=== PATIENT | male | born 1970 | race Caucasian/White ===

== ENCOUNTER 2017-01-20 10:33 | Day surgery (SDC) | payer BC ==
[~2017-01-20 10:33] MED LIST: Acetaminophen/HYDROcodone 325-5 MG Tab PO PRN
[2017-01-20] MEDS ORDERED: Bupivacaine 0.25%/EPINEPHrine 1:200,000 10 ML SDV ONE ×2 (10:39→12:42)
[2017-01-20] MEDS ORDERED: Propofol 200 MG/20 ML SDV ONE ×2 (10:58→13:03)
[2017-01-20] MEDS ORDERED: fentaNYL 100 MCG/2 ML SDV ONE (10:58)
[2017-01-20] MEDS ORDERED: Midazolam 1 MG/ML 2 ML SDV ONE (10:58)
[2017-01-20] MEDS ORDERED: fentaNYL 250 MCG/5 ML SDV ONE (10:58)
[2017-01-20] MEDS ORDERED: Lidocaine 2% 5 ML SDV ONE (10:58)
[2017-01-20] MEDS ORDERED: Clindamycin Phosphate in D5W 600 MG in Premix Bag 1 BAG IV ONE ×2 (11:00)
[2017-01-20] MEDS ORDERED: Bacitracin Oint 28.35 GM Tube TOP ONE (11:00)
[2017-01-20] MEDS ORDERED: Rocuronium 10 MG/ML 10 ML Syringe ONE (11:00)
[2017-01-20] MEDS ORDERED: Ondansetron 4 MG/2 ML SDV ONE (11:00)
[2017-01-20] MEDS ORDERED: Neostigmine Methylsulfate 1 MG/ML 5 ML Syringe ONE (11:00)
[2017-01-20] MEDS ORDERED: Bupivacaine 0.25%/EPINEPHrine 1:200,000 10 ML SDV INJECT ONE (11:00)
[2017-01-20] MEDS ORDERED: HYDROmorphone 2 MG/ML Syringe ONE (11:07)
[2017-01-20] MEDS ORDERED: Methylene Blue 50 MG/10 ML Ampule IV ONE (11:19)
--- NOTE | 2017-01-20 11:19 | PCM.PREANE ---
Preanesthetic Assessment - Anesthesia/Transfusion/Family Hx Anesthesia History: Prior Anesthesia Without Reaction Family History of Anesthesia Reaction: No Transfusion History: No Prior Transfusion(s) - Review of Systems General: No Symptoms Pulmonary: No Symptoms Cardiovascular: No Symptoms Gastrointestinal: No symptoms Neurological: No Symptoms Other: Reports: None - Physical Assessment NPO Status Date: 01/19/17 O2 Sat by Pulse Oximetry: 97 Respiratory Rate: 16 Vital Signs: Last Vital Signs Temp 37.2 C 01/20/17 10:58 Pulse 64 01/20/17 10:58 Resp 16 01/20/17 10:58 BP 158/77 H 01/20/17 10:58 Pulse Ox 97 01/20/17 10:58 Height: 1.78 m Weight: 127.006 kg ASA Class: 2 Mental Status: Alert & Oriented x3 Airway Class: Mallampati = 2 Dentition: Reports: Normal Dentition ROM/Head Extension: Full Lungs: Clear to auscultation, Normal respiratory effort Cardiovascular: Regular Rate, Regular Rhythm - Allergies Allergies/Adverse Reactions: Allergies Allergy/AdvReac Type Severity Reaction Status Date / Time No Known Allergies Allergy Verified 02/10/16 20:02 - Blood Blood Available: Yes - Anesthesia Plan Pre-Op Medication Ordered: None - Acknowledgements Anesthesia Type Planned: General Anesthesia Pt an Appropriate Candidate for the Planned Anesthesia: Yes Alternatives and Risks of Anesthesia Discussed w Pt/Guardian: Yes Pt/Guardian Understands and Agrees with Anesthesia Plan: Yes Additional Comments: problem list: chronic bilat lower ext edema with stasis changes, has scabbed excoriations, but no cellulitis. PreAnesthesia Questionnaire - Past Health History Medical/Surgical History: Denies Medical/Surgical History Gastrointestinal History: Reports: None Endocrine/Metabolic History: Reports: Obesity/BMI 30+ - Past Surgical History Head Surgeries/Procedures: Reports: None GI Surgical History: Reports: Other (See Below) Other GI Surgeries/Procedures: previous exc of pilonidal cyst x2 Musculoskeletal Surgical History: Reports: Other (See Below) Other Musculoskeletal Surgeries/Procedures:: amputation of tip of finger - SUBSTANCE USE Smoking Status *Q: Current Some Day Smoker Tobacco Use Within Last Twelve Months: Snuff/Dip Recreational Drug Use History: No - HOME MEDS Home Medications: Home Meds Furosemide 20 mg PO DAILY 01/18/17 [History] Levofloxacin 1 tab PO DAILY 01/18/17 [History] - CURRENT (IN HOUSE) MEDS Current Meds: Current Medications Hydrocodone Bitart/Acetaminophen ([place] 325-5 Mg) 1 tab PO Q4H PRN PRN Reason: Pain Clindamycin Phosphate 600 mg/ (Premix) 50 mls @ 150 mls/hr IV ONETIME ONE Stop: 01/20/17 11:19 Lactated Ringer's (Ringers, Lactated) 1,000 mls @ 125 mls/hr IV ASDIRECTED KENNY Last Admin: 01/20/17 10:59 Dose: 125 mls/hr Discontinued Medications Bacitracin (Bacitracin Oint) 50 gm TOP ONETIME ONE Stop: 01/20/17 11:01 Bupivacaine HCl/Epinephrine Bitart (Marcaine 0.25%/Epinephrine 1:200,000) 30 ml INJECT ONETIME ONE Stop: 01/20/17 11:01 Bupivacaine HCl/Epinephrine Bitart (Marcaine 0.25%/Epinephrine 1:200,000) Confirm Administered Dose 10 ml .ROUTE .STK-MED ONE Stop: 01/20/17 10:40 Fentanyl (Sublimaze) Confirm Administered Dose 100 mcg .ROUTE .STK-MED ONE Stop: 01/20/17 10:59 Fentanyl (Sublimaze) Confirm Administered Dose 250 mcg .ROUTE .STK-MED ONE Stop: 01/20/17 10:59 Glycopyrrolate () Confirm Administered Dose 1 mg .ROUTE .STK-MED ONE Stop: 01/20/17 11:01 Hydromorphone HCl (Dilaudid) Confirm Administered Dose 2 mg .ROUTE .STK-MED ONE Stop: 01/20/17 11:08 Lidocaine (Xylocaine-Mpf 2%) Confirm Administered Dose 10 ml .ROUTE .STK-MED ONE Stop: 01/20/17 10:59 Midazolam HCl (Versed 1 Mg/Ml) Confirm Administered Dose 2 mg .ROUTE .STK-MED ONE Stop: 01/20/17 10:59 Neostigmine Methylsulfate (Neostigmine) Confirm Administered Dose 5 mg .ROUTE .STK-MED ONE Stop: 01/20/17 11:01 Ondansetron HCl (Zofran) Confirm Administered Dose 4 mg .ROUTE .STK-MED ONE Stop: 01/20/17 11:01 Propofol (Diprivan 20 Ml) Confirm Administered Dose 400 mg .ROUTE .STK-MED ONE Stop: 01/20/17 10:59 Rocuronium Lampe (Zemuron) Confirm Administered Dose 100 mg .ROUTE .MiniTime-MED ONE Stop: 01/20/17 11:01
[2017-01-20] MEDS ORDERED: Lactated Ringers 1,000 ML IV SCH (12:00)
[2017-01-20] MEDS ORDERED: fentaNYL 100 MCG/2 ML SDV IVPUSH PRN (12:52)
[2017-01-20] MEDS ORDERED: HYDROmorphone 2 MG/ML Syringe IVPUSH ONE (12:52)
--- NOTE | 2017-01-20 14:03 | PCM.OPNOTE ---
- General Post-Op/Procedure Note Date of Surgery/Procedure: 01/20/17 Operative Procedure(s): excision of large recurrent pilonidal cyst with complex closure of 20cm Pre Op Diagnosis: pilonidal cyst with abscess - recurrent x 2 Post-Op Diagnosis: Same Anesthesia Technique: General ET tube, Local Primary Surgeon: Charley Prater [employer] Certified Internetwork Expert: Eleni Garner Complications: None Condition: Good
--- NOTE | 2017-01-20 14:32 | PCM.POSTAN ---
POST ANESTHESIA ASSESSMENT - MENTAL STATUS Mental Status: alert, oriented - RESPIRATORY Respiratory Status: respiratory rate WNL, airway patent, O2 saturation stable - GASTROINTESTINAL GI Status: no symptoms - PAIN Pain Score: 0 - POST OP HYDRATION Hydration Status: adequate & stable - OBSERVATIONS Free Text/Narrative:: no anesthesia problems
[2017-01-20 16:56] VITALS: BP 133/52
--- NOTE | 2017-01-25 17:26 | OR ---
SURGEON: FAYE LEIGH MD DATE OF PROCEDURE: 01/20/2017 PREOPERATIVE DIAGNOSIS: Large recurrent pilonidal cyst with complex abscess. POSTOPERATIVE DIAGNOSIS: Large recurrent pilonidal cyst with complex abscess. PROCEDURE: Excision of large recurrent pilonidal cyst with abscess with complex closure of 20 cm. HOLD WORKER: KISHORE Owens. ANESTHESIA: General ET tube with local anesthesia. Positioning was prone. INDICATIONS: Mr. Cordova is a 46-year-old gentleman with a pilonidal cyst that has recurred two times. For the last 10 years, he has been using a tampon and other means of keeping this under control; however, it continues to effect his daily life. Risks and benefits of excision were discussed with him and he is in agreement to proceed. He continues to have foul drainage on a daily basis. It continues to be red and inflamed. Risks and benefits of excision including but not limited to, bleeding, infection, damage to underlying or overlying structures, possible need for future interventions and possible scarring. PROCEDURE IN DETAIL: After informed consent was obtained and placed on the chart, the patient was brought to the operating theater and laid in prone position after general anesthetic. Once adequately positioned, attention was then paid to prepping with Betadine cleansing solution and marking the excision. Once adequately marked, attention was then paid to a time-out to confirm side and site and preoperative antibiotics have been given. Attention was then paid to dissection around the pilonidal cyst after injection of methylene blue to make the dissection more visible. Dissection was carried circumferentially around this without entering the sac and meticulous hemostasis was obtained. Once adequate hemostasis was obtained, attention was then paid to copious irrigation. Meticulous hemostasis was ensured and then the wound was undermined and closed using deep 2-0 PDS sutures for the fascia and the deeper layers, and anchoring this to the tailbone to close the space. Once this was completed, attention was then paid to the superficial layers using 3-0 Monocryl stitches for the dermis and a horizontal 3-0 Prolene for the skin. The patient tolerated this well. The wounds were dressed with Xeroform, fluffs, ABDs, tape, and mesh panties. The patient tolerated this well. All counts of needles were correct at the end the case. FOLLOWUP INSTRUCTIONS: The patient will see us in one week or sooner if any problems, questions, or concerns. He was given a prescription for pain control as well. HEGGTJANY / RON /[id number]
== END 2017-01-20 15:55 | disposition home or self-care (01) ==
LOC: MW.SDS 10:33
PROVIDERS: ATTEND Plastic Surgery
PROC: 0JB90ZZ Excision of Buttock Subcutaneous Tissue and Fascia, Open Approach (ICD-10-PCS; principal; 2017-01-20)
DX: L05.01 Pilonidal cyst with abscess (principal); J20.9 Acute bronchitis, unspecified; F17.200 Nicotine dependence, unspecified, uncomplicated; E66.9 Obesity, unspecified; Z79.899 Other long term (current) drug therapy; Z98.890 Other specified postprocedural states; Z68.41 Body mass index [BMI] 40.0-44.9, adult
CPT/HCPCS: 11771; 88304; J1170; J2250; J2405; J3010; J7120; Q9968; 00300; J2704

== ENCOUNTER 2021-03-01 10:39 | Emergency (ER) | payer BC ==
[2021-03-01] MEDS ORDERED: Sodium Chloride 0.9% 10 ML Syringe FLUSH PRN (10:45)
[2021-03-01] MEDS ORDERED: Sodium Chloride 0.9% 2.5 ML Syringe FLUSH PRN (10:45)
[2021-03-01] MEDS ORDERED: Furosemide 40 MG/4 ML VIAL IVPUSH ONE (10:46)
[2021-03-01] MEDS ORDERED: Aspirin 81 MG Tab.Chew PO ONE (10:47)
--- NOTE | 2021-03-01 11:02 | EDM.PDOC ---
ED HPI GENERAL MEDICAL PROBLEM - General Stated Complaint: SOB,CP,DIZZY,DISORIENTED Time Seen by Provider: 03/01/21 10:41 - History of Present Illness INITIAL COMMENTS - FREE TEXT/NARRATIVE: Patient is a 50-year-old male he has a suspected bicuspid aortic valve with known moderate aortic stenosis and severe aortic insufficiency. He is scheduled to have his valve intervened on in [place] in a month. Patient was developing symptoms of dizziness and mild disorientation. He was seen at the clinic 5 days ago and taken off of his Lasix. Over the last 3 days he has had gradually worsening difficulty breathing. It is now constant and severe and present at rest 2 days ago it was present only with exertion. Patient does chew tobacco products but has no smoking history he has no history of asthma or other lung disease. He has no cough or fever. He has had a gradually worsening substernal chest pain over the last few days as well. No syncope with some dizziness as well. Symptoms are now constant and severe. No alleviating factors. He does not notice a difference when he lays flat. chest Pain Score (Numeric/FACES): 5 - Related Data Allergies Allergy/AdvReac Type Severity Reaction Status Date / Time No Known Allergies Allergy Verified 03/01/21 11:08 Home Meds: Home Meds Furosemide 20 mg PO DAILY 01/18/17 [History] Past Medical History - Past Health History Medical/Surgical History: Denies Medical/Surgical History Gastrointestinal History: Reports: None Endocrine/Metabolic History: Reports: Obesity/BMI 30+ - Past Surgical History Head Surgeries/Procedures: Reports: None GI Surgical History: Reports: Other (See Below) Other GI Surgeries/Procedures: previous exc of pilonidal cyst x2 Musculoskeletal Surgical History: Reports: Other (See Below) Other Musculoskeletal Surgeries/Procedures:: amputation of tip of finger Social & Family History - Family History Family Medical History: No Pertinent Family History ED ROS GENERAL - Review of Systems Review Of Systems: See Below Free Text/Narrative/Comment: General: No fever. Eyes: No vision problems. ENT: No sore throat. Neck: No neck stiffness. Respiratory: Per HPI Cardiac: Per HPI Gastrointestinal: No nausea, vomiting or abdominal pain. Musculoskeletal: No myalgias/arthralgias. Neurologic: No headache. ED EXAM, GENERAL - Physical Exam Exam: See Below Free Text/Narrative:: General Appearance: Mild respiratory distress, dyspneic with speech, increased work of breathing, patient is diaphoretic. HEENT: Normocephalic/atraumatic, sclera anicteric, mucous membranes moist Neck: Normal range of motion Chest and Lungs: Bilateral breath sounds are tight with moderate air movement and increased work of breathing Cardiovascular: Tachycardic rate regular rhythm mildly mottled extremities initially Abdomen: Soft, non-tender Back: Normal Musculoskeletal: No edema or tenderness Neurologic: Awake, alert, no obvious deficits, moving all extremities Psychiatric: Appropriate, cooperative #1 Interpretation EKG Date: 03/01/21 Time: 10:50 EKG Interpretation Comments: Sinus tachycardia rate of 107 significant baseline wander inhibits accurate interpretation but there is some ST elevation anteriorly in V1 through V3. Also some depressions inferiorly. This could represent acute ischemia however baseline wander inhibits accurate diagnosis of STEMI. #2 Interpretation EKG Date: 03/01/21 Time: 11:05 EKG Interpretation Comments: Sinus tachycardia rate of 109 LVH with secondary repolarization abnormality some ST elevation remains anteriorly but appears consistent with LVH no reciprocal changes significant baseline wander remains. There are no changes that would suggest right-sided MN #3 Interpretation EKG Date: 03/01/21 Time: 11:21 EKG Interpretation Comments: Some baseline wander persists. Sinus tachycardia rate of [address] elevation consistent with LVH related change no ST depressions noted overall not convincing for acute ischemia #4 Interpretation EKG Date: 03/01/21 Time: 11:25 EKG Interpretation Comments: Sinus tachycardia rate of 121 signs of LVH with related repolarization abnormality no regional ST elevations or depressions that would suggest acute ischemia Course - Vital Signs Last Recorded V/S: Last Vital Signs Temp 98.2 F 03/01/21 11:41 Pulse 108 H 03/01/21 11:41 Resp 24 H 03/01/21 11:41 BP 112/69 03/01/21 11:41 Pulse Ox 97 03/01/21 11:41 - Orders/Labs/Meds Orders: Active Orders 24 hr Category Date Time Status BIPAP Adult [RT BiPAP/CPAP] [RC] ASDIRECTED Care 03/01/21 10:48 Active EKG 12 Lead [EKG Documentation Completion] [RC] STAT Care 03/01/21 11:00 Active EKG 12 Lead [EKG Documentation Completion] [RC] STAT Care 03/01/21 11:19 Active EKG 12 Lead [EKG Documentation Completion] [RC] STAT Care 03/01/21 11:19 Active EKG 12 Lead [EKG Documentation Completion] [RC] STAT Care 03/01/21 11:20 Active EKG Documentation Completion [RC] AM Care 03/01/21 10:45 Active B-TYPE NATRIURETIC PEPTIDE,BNP [CHEM] Stat Lab 03/01/21 10:48 Received CORONAVIRUS COVID-19 KELLI [MOLEC] Stat Lab 03/01/21 10:50 Received Sodium Chloride 0.9% [Saline Flush] Med 03/01/21 10:45 Active 10 ml FLUSH ASDIRECTED PRN Sodium Chloride 0.9% [Saline Flush] Med 03/01/21 10:45 Active 2.5 ml FLUSH ASDIRECTED PRN Saline Lock Insert [OM.PC] Stat Oth 03/01/21 10:45 Ordered Medication Orders Sodium Chloride (Sodium Chloride 0.9% 10 Ml Syringe) 10 ml FLUSH ASDIRECTED PRN PRN Reason: Keep Vein Open Last Admin: 03/01/21 10:55 Dose: 10 ml Documented by: DARIEL Sodium Chloride (Sodium Chloride 0.9% 2.5 Ml Syringe) 2.5 ml FLUSH ASDIRECTED PRN PRN Reason: Keep Vein Open Last Admin: 03/01/21 10:56 Dose: 2.5 ml Documented by: DARIEL Labs: Laboratory Tests 03/01/21 03/01/21 Range/Units 10:48 10:48 WBC 10.64 (4.0-11.0) K/uL RBC 4.94 (4.50-5.90) M/uL Hgb 14.9 (13.0-17.0) g/dL Hct 42.1 (38.0-50.0) % MCV 85.2 (80.0-98.0) fL MCH 30.2 (27.0-32.0) pg MCHC 35.4 (31.0-37.0) g/dL RDW Std Deviation 42.3 (28.0-62.0) fl RDW Coeff of Maurilio 14 (11.0-15.0) % Plt Count 123 L (150-400) K/uL MPV 11.30 (7.40-12.00) fL Neut % (Auto) 83.9 H (48.0-80.0) % Lymph % (Auto) 4.3 L (16.0-40.0) % [place] % (Auto) 11.8 (0.0-15.0) % Eos % (Auto) 0.0 (0.0-7.0) % Baso % (Auto) 0.0 (0.0-1.5) % Neut # (Auto) 8.9 H (1.4-5.7) K/uL Lymph # (Auto) 0.5 L (0.6-2.4) K/uL [place] # (Auto) 1.3 H (0.0-0.8) K/uL Eos # (Auto) 0.0 (0.0-0.7) K/uL Baso # (Auto) 0.0 (0.0-0.1) K/uL Nucleated RBC % 0.0 /100WBC Nucleated RBCs # 0 K/uL Sodium 132 L (136-148) mmol/L Potassium 4.1 (3.5-5.1) mmol/L Chloride 95 L (98-107) mmol/L Carbon Dioxide 27.1 (21.0-32.0) mmol/L BUN 18 (7.0-18.0) mg/dL Creatinine 1.6 H (0.8-1.3) mg/dL Est Cr Clr Drug Dosing 58.30 mL/min Estimated GFR (MDRD) 46.4 ml/min Glucose 155 H (74-106) mg/dL Calcium 8.4 L (8.5-10.1) mg/dL Magnesium 2.0 (1.8-2.4) mg/dL Total Bilirubin 1.2 H (0.2-1.0) mg/dL AST 51 H (15-37) IU/L ALT 77 H (14-63) IU/L Alkaline Phosphatase 94 (46-116) U/L Troponin I 0.342 H* (0.000-0.056) ng/mL Total Protein 7.0 (6.4-8.2) g/dL Albumin 3.4 (3.4-5.0) g/dL Globulin 3.6 (2.6-4.0) g/dL Albumin/Globulin Ratio 0.9 (0.9-1.6) Meds: Medications Generic Name Dose Route Start Last Admin Trade Name Santiq PRN Reason Stop Dose Admin Sodium Chloride 10 ml 03/01/21 10:45 03/01/21 10:55 Sodium Chloride 0.9% 10 Ml Syringe FLUSH 10 ml ASDIRECTED PRN Administration Keep Vein Open Sodium Chloride 2.5 ml 03/01/21 10:45 03/01/21 10:56 Sodium Chloride 0.9% 2.5 Ml Syringe FLUSH 2.5 ml ASDIRECTED PRN Administration Keep Vein Open Discontinued Medications Generic Name Dose Route Start Last Admin Trade Name Freq PRN Reason Stop Dose Admin Aspirin 324 mg 03/01/21 10:47 03/01/21 10:54 Aspirin 81 Mg Tab.Chew PO 03/01/21 10:48 324 mg ONETIME ONE Administration Furosemide 80 mg 03/01/21 10:46 03/01/21 10:54 Furosemide 40 Mg/4 Ml Vial IVPUSH 03/01/21 10:47 80 mg NOW ONE Administration Morphine Sulfate 4 mg 03/01/21 11:17 03/01/21 11:32 Morphine 4 Mg/Ml Syringe IVPUSH 03/01/21 11:18 4 mg ONETIME ONE Administration Nitroglycerin 1 gm 03/01/21 11:08 03/01/21 11:17 Nitroglycerin 2% Oint 1 Gm Ud Packet TOP 03/01/21 11:09 1 gm ONETIME ONE Administration Nitroglycerin 0.4 mg 03/01/21 11:08 03/01/21 11:17 Nitroglycerin 0.4 Mg Tab.Sl SL 03/01/21 11:09 0.4 mg ONETIME ONE Administration Ondansetron HCl 4 mg 03/01/21 11:17 03/01/21 11:32 Ondansetron 4 Mg/2 Ml Sdv IVPUSH 03/01/21 11:18 4 mg ONETIME ONE Administration Departure - Departure Time of Disposition: 11:54 Disposition: DC/Tfer to Acute Hospital 02 Condition: Fair Clinical Impression: CHF (congestive heart failure), Aortic valve insufficiency, NSTEMI (non-ST elevated myocardial infarction) - Discharge Information *PRESCRIPTION DRUG MONITORING PROGRAM REVIEWED*: Not Applicable *COPY OF PRESCRIPTION DRUG MONITORING REPORT IN PATIENT MADINA: Not Applicable Referrals: Obi Leary MD [Primary Care Provider] - Critical Care Note - Critical Care Note Comments: Patient presents in respiratory distress with increased work of breathing moderate air movement and diffuse expiratory wheezing. He was immediately placed on BiPAP with some symptomatic improvement. Acute heart failure was and concern potential for ACS is a concern. Much less likely acute lung base pathology such as bronchitis or pneumonia. He required recurrent reassessment significant amount of bedside intervention and time for myself. Sepsis Event Note (ED) - Focused Exam Vital Signs: Vital Signs Temp Pulse Resp BP BP Pulse Ox 03/01/21 11:41 98.2 F 108 H 24 H 112/69 97 03/01/21 11:36 97.6 F 104 H 28 H 143/85 H 96 03/01/21 11:17 142/87 H 03/01/21 11:04 97.7 F 104 H 30 H 135/80 89 L 03/01/21 10:59 97.4 F 112 H 32 H 142/87 H 96 - My Orders Last 24 Hours: My Active Orders 03/01/21 10:45 EKG Documentation Completion [RC] AM Sodium Chloride 0.9% [Saline Flush] 10 ml FLUSH ASDIRECTED PRN Sodium Chloride 0.9% [Saline Flush] 2.5 ml FLUSH ASDIRECTED PRN Saline Lock Insert [OM.PC] Stat 03/01/21 10:48 BIPAP Adult [RT BiPAP/CPAP] [RC] ASDIRECTED B-TYPE NATRIURETIC PEPTIDE,BNP [CHEM] Stat 03/01/21 10:50 CORONAVIRUS COVID-19 KELLI [MOLEC] Stat 03/01/21 11:00 EKG 12 Lead [EKG Documentation Completion] [RC] STAT 03/01/21 11:19 EKG 12 Lead [EKG Documentation Completion] [RC] STAT EKG 12 Lead [EKG Documentation Completion] [RC] STAT 03/01/21 11:20 EKG 12 Lead [EKG Documentation Completion] [RC] STAT - Assessment/Plan Last 24 Hours: My Active Orders 03/01/21 10:45 EKG Documentation Completion [RC] AM Sodium Chloride 0.9% [Saline Flush] 10 ml FLUSH ASDIRECTED PRN Sodium Chloride 0.9% [Saline Flush] 2.5 ml FLUSH ASDIRECTED PRN Saline Lock Insert [OM.PC] Stat 03/01/21 10:48 BIPAP Adult [RT BiPAP/CPAP] [RC] ASDIRECTED B-TYPE NATRIURETIC PEPTIDE,BNP [CHEM] Stat 03/01/21 10:50 CORONAVIRUS COVID-19 KELLI [MOLEC] Stat 03/01/21 11:00 EKG 12 Lead [EKG Documentation Completion] [RC] STAT 03/01/21 11:19 EKG 12 Lead [EKG Documentation Completion] [RC] STAT EKG 12 Lead [EKG Documentation Completion] [RC] STAT 03/01/21 11:20 EKG 12 Lead [EKG Documentation Completion] [RC] STAT Assessment:: 50-year-old male presented with signs and symptoms that are most concerning for acute heart failure. Bronchitis and pneumonia considered. However the patient has no prior history of this and he has no fever. He does has a clear potential reason for high-output heart failure. Patient is initial blood pressure showed a systolic of 132 and so we will hold on nitro for the moment. Patient given aspirin and 80 of Lasix. Patient immediately placed on BiPAP. His initial EKG has some potential ischemic changes but also significant artifact and baseline wander. This EKG will be repeated in 10 minutes. CBC CMP troponin magnesium, bnp, chest x-ray are all pending at this time. 1110: Repeat EKG continues to have some potential ischemic changes but remains compromised by artifact as well. Changes are now apparently more consistent with LVH. We will repeat in 10 minutes. Patient's chest x-ray at bedside shows significant cardiomegaly as well as some findings of pulmonary edema. Patient's blood pressure somewhat more elevated with a systolic of 140. Second EKG shows no findings that are concerning for right-sided MN and so nitroglycerin will be given. 1155: Patient now looks much more comfortable he is breathing well on BiPAP. Most dramatic improvement again following morphine administration. Patient's troponin is positive. This is consistent with NSTEMI. Given the relatively low number I do not believe it is consistent with coronary artery occlusion on Monday his symptoms really began to worsen. Given the abnormal troponin patient was discussed with Dr. Carvajal at [facility] in [place]. She is excepted the patient for transfer the patient will need to fly via helicopter. Given his NSTEMI his respiratory symptoms and the lack of available ground transportation until after 8 PM this evening. Patient is felt to be stable for transfer at this time.
[2021-03-01] MEDS ORDERED: Nitroglycerin 2% Oint 1 GM UD Packet TOP ONE (11:08)
[2021-03-01] MEDS ORDERED: Nitroglycerin 0.4 MG Tab.SL SL ONE (11:08)
[2021-03-01] MEDS ORDERED: Ondansetron 4 MG/2 ML SDV IVPUSH ONE (11:17)
[2021-03-01] MEDS ORDERED: Morphine 4 MG/ML Syringe IVPUSH ONE (11:17)
--- NOTE | 2021-03-01 11:21 | CR ---
Indication: Shortness of breath. Technique: AP portable view of the chest. Comparison: February 16, 2021. Findings: The heart is enlarged. Fullness is identified in the right hilar region. No pleural effusion or pneumothorax is identified. Impression: Stable chest x-ray Dictated by Sofia Ruvalcaba MD @ 03/01/2021 11:21:[address] Sofia Ruvalcaba @ Mar 01 2021 11:21AM
[2021-03-01 11:38] LABS: CARBON DIOXIDE,CO2 27.1 mmol/L (21.0-32.0); POTASSIUM,K 4.1 mmol/L (3.5-5.1)
[2021-03-01 13:07] VITALS: BP 127/54; PULSE 102
== END 2021-03-01 12:50 ==
LOC: MW.ED 10:39
DX: I21.4 Non-ST elevation (NSTEMI) myocardial infarction (principal); I35.1 Nonrheumatic aortic (valve) insufficiency; I50.9 Heart failure, unspecified; R00.0 Tachycardia, unspecified; F17.220 Nicotine dependence, chewing tobacco, uncomplicated; E66.9 Obesity, unspecified; Z68.41 Body mass index [BMI] 40.0-44.9, adult
CPT/HCPCS: 36415; 71045; 80053; 83735; 83880; 84484; 85025; 87635; 93005; 94660; 96374; 96375; 99285; A9270; J1940; J2270; J2405; U0002

== ENCOUNTER 2021-10-22 19:28 | Emergency (ER) | payer BC, MEDICARE ==
[2021-10-22] MEDS ORDERED: Sodium Chloride 0.9% 1,000 ML IV ONE (20:22)
[2021-10-22] MEDS ORDERED: Acetaminophen 500 MG Tab PO ONE (20:23)
[2021-10-22 20:44] LABS: CORONAVIRUS COVID-19 NAA NEGATIVE (NEGATIVE); INFLUENZA A NAA NEGATIVE (NEGATIVE); INFLUENZA B NAA NEGATIVE (NEGATIVE)
[2021-10-22 21:11] LABS: BLOOD UREA NITROGEN,BUN 35 mg/dL (7.0-18.0); CHLORIDE,CL 98 mmol/L (98-107); GLUCOSE RANDOM 113 mg/dL (74-106); POTASSIUM,K 3.8 mmol/L (3.5-5.1); SODIUM,NA 134 mmol/L (136-148)
[2021-10-22] MEDS ORDERED: Piperacillin/Tazobactam 3.375 GM in Sodium Chloride 0.9% 50 ML IV ONE (21:42)
[2021-10-22] MEDS ORDERED: VANCOmycin 2 GM/400 ML 2 GM in Premix Bag 1 BAG IV ONE (22:00)
[2021-10-22] MEDS ORDERED: Furosemide 40 MG/4 ML VIAL IVPUSH ONE (22:51)
[2021-10-22 23:36] VITALS: BP 121/89; PULSE 108
[2021-10-23] MEDS ORDERED: VANCOmycin 1.5 GM/300 ML 1.5 GM in Premix Bag 1 BAG IV SCH (22:00)
== END 2021-10-22 23:56 ==
LOC: MW.ED 19:28
DX: J81.1 Chronic pulmonary edema (principal); R65.10 Systemic inflammatory response syndrome (SIRS) of non-infectious origin without acute organ dysfunction; N18.9 Chronic kidney disease, unspecified; I51.7 Cardiomegaly; Z79.82 Long term (current) use of aspirin; Z79.899 Other long term (current) drug therapy; Z20.822 Contact with and (suspected) exposure to COVID-19; Z94.1 Heart transplant status; Z94.0 Kidney transplant status
CPT/HCPCS: 0240U; 36415; 71045; 80053; 80197; 81001; 83605; 83880; 84484; 85025; 87040; 87086; 87088; 87154; 87186; 93005; 99284; A9270; J1940; J2543; J7030; 87077

== ENCOUNTER 2021-12-08 12:46 | Emergency (ER) | payer MEDICARE, BC ==
[2021-12-08 14:01] LABS: CARBON DIOXIDE,CO2 25.7 mmol/L (21.0-32.0); POTASSIUM,K 3.6 mmol/L (3.5-5.1)
[2021-12-08 17:40] VITALS: BP 121/88; PULSE 98
== END 2021-12-08 18:03 | disposition home or self-care (01) ==
LOC: MW.ED 12:46
DX: R33.9 Retention of urine, unspecified (principal); E78.00 Pure hypercholesterolemia, unspecified; I10 Essential (primary) hypertension; E66.9 Obesity, unspecified; Z68.34 Body mass index [BMI] 34.0-34.9, adult; Z79.82 Long term (current) use of aspirin; Z79.899 Other long term (current) drug therapy; Z94.1 Heart transplant status
CPT/HCPCS: 36415; 51702; 71045; 71045-26; 74176; 74176-26; 80053; 81001; 83735; 83880; 84484; 85025; 93005; 93010; 99284; 99284-25

== ENCOUNTER 2022-04-14 15:19 | Emergency (ER) | payer MEDICARE, BC ==
[2022-04-14 16:18] LABS: CARBON DIOXIDE,CO2 24.2 mmol/L (21.0-32.0); POTASSIUM,K 4.1 mmol/L (3.5-5.1)
[2022-04-14 18:10] VITALS: BP 132/84; PULSE 78
== END 2022-04-14 17:45 | disposition home or self-care (01) ==
LOC: MW.ED 15:19
DX: R14.0 Abdominal distension (gaseous) (principal); E78.00 Pure hypercholesterolemia, unspecified; I10 Essential (primary) hypertension; E66.9 Obesity, unspecified; Z68.32 Body mass index [BMI] 32.0-32.9, adult; Z91.041 Radiographic dye allergy status; Z79.899 Other long term (current) drug therapy; Z79.82 Long term (current) use of aspirin
CPT/HCPCS: 36415; 74176; 74176-26; 80053; 81001; 85025; 99284

== ENCOUNTER 2022-08-07 12:19 | Emergency (ER) | payer MEDICARE, BC ==
[2022-08-07 13:29] LABS: CARBON DIOXIDE,CO2 24.8 mmol/L (21.0-32.0); POTASSIUM,K 3.3 mmol/L (3.5-5.1)
[2022-08-07] MEDS ORDERED: Lactated Ringers 1,000 ML IV ONE (13:37)
[2022-08-07] MEDS ORDERED: Sulfamethoxazole/Trimethoprim 800-160 MG Tab PO ONE (14:21)
[2022-08-07 14:36] LABS: CORONAVIRUS COVID-19 NAA POSITIVE (NEGATIVE); INFLUENZA A NAA NEGATIVE (NEGATIVE); INFLUENZA B NAA NEGATIVE (NEGATIVE)
[2022-08-07 16:33] VITALS: BP 150/100; PULSE 104
== END 2022-08-07 16:41 | disposition home or self-care (01) ==
LOC: MW.ED 12:19
DX: R33.9 Retention of urine, unspecified (principal); E78.00 Pure hypercholesterolemia, unspecified; I10 Essential (primary) hypertension; E66.9 Obesity, unspecified; Z68.31 Body mass index [BMI] 31.0-31.9, adult; Z91.041 Radiographic dye allergy status; Z79.899 Other long term (current) drug therapy; Z79.82 Long term (current) use of aspirin; Z20.822 Contact with and (suspected) exposure to COVID-19
CPT/HCPCS: 0240U; 36415; 51702; 76776; 80053; 81001; 83605; 85025; 87086; 96360; 99284; A9270; J7120

== ENCOUNTER 2022-08-24 15:42 | Emergency (ER) | payer MEDICARE, BC ==
[2022-08-24 16:39] LABS: CORONAVIRUS COVID-19 NAA NEGATIVE (NEGATIVE); INFLUENZA A NAA NEGATIVE (NEGATIVE); INFLUENZA B NAA NEGATIVE (NEGATIVE)
[2022-08-24] MEDS ORDERED: Sodium Chloride 0.9% 2.5 ML Syringe FLUSH PRN (19:14)
[2022-08-24] MEDS ORDERED: Sodium Chloride 0.9% 10 ML Syringe FLUSH PRN (19:14)
[2022-08-24 20:22] LABS: CARBON DIOXIDE,CO2 25.7 mmol/L (21.0-32.0); POTASSIUM,K 4.2 mmol/L (3.5-5.1)
[2022-08-24] MEDS: Doxycycline 100 MG Cap PO ONE ×2 (21:10→22:12)
[2022-08-24] MEDS: Amoxicillin/Clavulanate K 875-125 MG Tab PO ONE ×2 (21:10→22:11)
[2022-08-24 21:57] VITALS: BP 123/80; PULSE 101
[2022-08-24] MEDS ORDERED: Doxycycline 100 MG Cap PO ONE (22:55)
[2022-08-24] MEDS ORDERED: Amoxicillin/Clavulanate K 875-125 MG Tab PO ONE (22:56)
== END 2022-08-24 23:13 | disposition home or self-care (01) ==
LOC: MW.ED 15:42
DX: J18.9 Pneumonia, unspecified organism (principal); R59.0 Localized enlarged lymph nodes; E04.1 Nontoxic single thyroid nodule; R22.1 Localized swelling, mass and lump, neck; I10 Essential (primary) hypertension; R00.0 Tachycardia, unspecified; E66.9 Obesity, unspecified; Z68.31 Body mass index [BMI] 31.0-31.9, adult; Z91.041 Radiographic dye allergy status; Z79.82 Long term (current) use of aspirin; Z79.899 Other long term (current) drug therapy; Z20.822 Contact with and (suspected) exposure to COVID-19
CPT/HCPCS: 0240U; 36415; 70490; 71046; 80053; 83605; 83735; 83880; 84484; 85025; 85610; 86140; 93005; 99285; A9270; J3490

== ENCOUNTER 2022-11-14 11:15 | Emergency (ER) | payer MEDICARE, BC ==
[2022-11-14 12:54] VITALS: PULSE 94
[2022-11-14 13:18] VITALS: BP 131/87
[2022-11-14 13:33] LABS: CORONAVIRUS COVID-19 NAA NEGATIVE (NEGATIVE); INFLUENZA A NAA NEGATIVE (NEGATIVE); INFLUENZA B NAA NEGATIVE (NEGATIVE)
[2022-11-14 14:13] LABS: POTASSIUM,K 5.4 mmol/L (3.5-5.1)
== END 2022-11-14 14:58 | disposition home or self-care (01) ==
LOC: MW.ED 11:15 → EEVIPCON 11:15 → MW.ED 14:57
DX: J18.9 Pneumonia, unspecified organism (principal); J21.0 Acute bronchiolitis due to respiratory syncytial virus; E78.00 Pure hypercholesterolemia, unspecified; I10 Essential (primary) hypertension; E66.9 Obesity, unspecified; Z68.31 Body mass index [BMI] 31.0-31.9, adult; Z91.041 Radiographic dye allergy status; Z79.82 Long term (current) use of aspirin; Z79.899 Other long term (current) drug therapy; Z20.822 Contact with and (suspected) exposure to COVID-19; Z94.0 Kidney transplant status; Z94.1 Heart transplant status
CPT/HCPCS: 0240U; 36415; 71046; 80053; 85025; 87634; 99283; 99285

== ENCOUNTER 2022-12-11 08:00 | Inpatient (IN) | payer MEDICARE, BC ==
[2022-12-11] MEDS ORDERED: Acetaminophen 500 MG Tab PO ONE (08:48)
[2022-12-11] MEDS ORDERED: Sodium Chloride 0.9% 2.5 ML Syringe FLUSH PRN (08:48)
[2022-12-11] MEDS ORDERED: Sodium Chloride 0.9% 10 ML Syringe FLUSH PRN (08:48)
[2022-12-11] MEDS ORDERED: Sodium Chloride 0.9% 1,000 ML IV ONE ×2 (08:48→10:50)
[2022-12-11 09:11] LABS: CARBON DIOXIDE,CO2 24.6 mmol/L (21.0-32.0); POTASSIUM,K 4.9 mmol/L (3.5-5.1)
[2022-12-11 09:49] LABS: CORONAVIRUS COVID-19 NAA NEGATIVE (NEGATIVE); INFLUENZA A NAA NEGATIVE (NEGATIVE); INFLUENZA B NAA NEGATIVE (NEGATIVE); RESPIRATORY SYNCYTIAL VIR NAA NEGATIVE (NEGATIVE)
[2022-12-11] MEDS ORDERED: Cefepime 2 GM Vial IVPUSH STA (09:49)
[2022-12-11] MEDS ORDERED: Cefepime 2 GM in Sodium Chloride 0.9% 50 ML IV ONE (10:30)
[2022-12-11] MEDS ORDERED: traZODone 50 MG Tab PO PRN (11:59)
[2022-12-11] MEDS ORDERED: TRIMETHOPRIM PO SCH (12:00)
[2022-12-11] MEDS ORDERED: SULFAMETHOXAZOLE PO SCH (12:00)
[2022-12-11] MEDS: Azithromycin 500 MG in Sodium Chloride 0.9% 250 ML IV SCH (13:38)
[2022-12-11] MEDS: Heparin Sodium 5,000 Units/ML Vial SUBCUT SCH (13:40)
[2022-12-11] MEDS: Acetaminophen 325 MG Tab PO PRN (18:56)
[2022-12-11] MEDS ORDERED: Tacrolimus 1 MG Cap PO SCH (21:00)
[2022-12-12] MEDS: Heparin Sodium 5,000 Units/ML Vial SUBCUT SCH ×2 (00:09→12:34)
[2022-12-12] MEDS: Acetaminophen 325 MG Tab PO PRN (02:26)
[2022-12-12] MEDS: oxyCODONE 5 MG Tab PO PRN ×3 (05:33→21:42)
[2022-12-12 06:03] LABS: CARBON DIOXIDE,CO2 23.4 mmol/L (21.0-32.0); POTASSIUM,K 4.6 mmol/L (3.5-5.1)
[2022-12-12] MEDS: predniSONE 5 MG Tab PO SCH (08:10)
[2022-12-12] MEDS: Omeprazole 20 MG Cap.CR PO SCH (08:10)
[2022-12-12] MEDS: Losartan 50 MG Tab PO SCH (08:10)
[2022-12-12] MEDS: Magnesium Oxide 400 MG Tab PO SCH (08:11)
[2022-12-12] MEDS: Tacrolimus 1 MG Cap PO SCH ×2 (08:11→20:19)
[2022-12-12] MEDS: Aspirin 81 MG Tab.Chew PO SCH (08:11)
[2022-12-12] MEDS: VALGANCICLOVIR HCL 450 MG PO SCH (08:15)
[2022-12-12] MEDS ORDERED: Benzocaine/Cetylpyridinium/Menthol Lozenge MUCMEM PRN (08:51)
[2022-12-12] MEDS ORDERED: Multivitamins with Iron/Calcium/Folic Acid/Minerals Tab PO SCH (09:00)
[2022-12-12] MEDS ORDERED: amLODIPine 5 MG Tab PO SCH (09:00)
[2022-12-12] MEDS: [UNRECOGNIZED DRUG - OTHER] PO SCH (11:12)
[2022-12-12] MEDS: Azithromycin 500 MG in Sodium Chloride 0.9% 250 ML IV SCH (12:39)
[2022-12-12] MEDS: Sulfamethoxazole/Trimethoprim 800-160 MG Tab PO SCH (17:59)
[2022-12-12] MEDS ORDERED: Non-Formulary Medication 1 Each (Magnesium Oxide [Magnesium] 400 MG Tablet) PO SCH (18:00)
[2022-12-12] MEDS: Pravastatin 40 MG Tab PO SCH (20:15)
[2022-12-12] MEDS: Cefepime 2 GM in Sodium Chloride 0.9% 50 ML IV SCH (21:43)
[2022-12-13] MEDS: Heparin Sodium 5,000 Units/ML Vial SUBCUT SCH ×3 (00:15→23:51)
[2022-12-13] MEDS: oxyCODONE 5 MG Tab PO PRN ×3 (05:52→23:51)
[2022-12-13] MEDS: Omeprazole 20 MG Cap.CR PO SCH ×2 (05:53→07:42)
[2022-12-13 07:05] LABS: CARBON DIOXIDE,CO2 22.1 mmol/L (21.0-32.0)
[2022-12-13] MEDS: Losartan 50 MG Tab PO SCH (08:21)
[2022-12-13] MEDS: Magnesium Oxide 400 MG Tab PO SCH (08:21)
[2022-12-13] MEDS: Tacrolimus 1 MG Cap PO SCH ×2 (08:21→20:04)
[2022-12-13] MEDS: Cefepime 2 GM in Sodium Chloride 0.9% 50 ML IV SCH (08:22)
[2022-12-13] MEDS: predniSONE 5 MG Tab PO SCH (08:22)
[2022-12-13] MEDS: [UNRECOGNIZED DRUG - OTHER] PO SCH (08:22)
[2022-12-13] MEDS: Aspirin 81 MG Tab.Chew PO SCH (08:22)
[2022-12-13] MEDS: VALGANCICLOVIR HCL 450 MG PO SCH (08:23)
[2022-12-13] MEDS: Azithromycin 500 MG in Sodium Chloride 0.9% 250 ML IV SCH (11:49)
[2022-12-13] MEDS: diphenhydrAMINE 25 MG Cap PO PRN ×2 (15:05→21:57)
[2022-12-13] MEDS: Levofloxacin/Dextrose 5%-Water 750 MG in Premix Bag 1 BAG IV SCH (17:37)
[2022-12-13] MEDS: Pravastatin 40 MG Tab PO SCH (20:03)
[2022-12-14] MEDS: Omeprazole 20 MG Cap.CR PO SCH (06:41)
[2022-12-14 07:37] LABS: CARBON DIOXIDE,CO2 22.7 mmol/L (21.0-32.0); POTASSIUM,K 5.3 mmol/L (3.5-5.1)
[2022-12-14] MEDS: predniSONE 5 MG Tab PO SCH (08:10)
[2022-12-14] MEDS: Tacrolimus 1 MG Cap PO SCH ×2 (08:11→20:29)
[2022-12-14] MEDS: Aspirin 81 MG Tab.Chew PO SCH (08:11)
[2022-12-14] MEDS: Magnesium Oxide 400 MG Tab PO SCH (08:11)
[2022-12-14] MEDS: [UNRECOGNIZED DRUG - OTHER] PO SCH ×3 (08:12→20:33)
[2022-12-14] MEDS: Losartan 50 MG Tab PO SCH (08:16)
[2022-12-14] MEDS: VALGANCICLOVIR HCL 450 MG PO SCH ×2 (08:21→08:22)
[2022-12-14] MEDS: oxyCODONE 5 MG Tab PO PRN ×2 (08:41→17:01)
[2022-12-14] MEDS: diphenhydrAMINE 25 MG Cap PO PRN ×2 (08:41→15:45)
[2022-12-14 10:06] LABS: BORDETELLA PARAPERT IS1001 Not Detected (Not Detected)
[2022-12-14] MEDS: Heparin Sodium 5,000 Units/ML Vial SUBCUT SCH (11:59)
[2022-12-14] MEDS ORDERED: VANCOmycin 2 GM/400 ML 2 GM in Premix Bag 1 BAG IV ONE (15:15)
[2022-12-14] MEDS: Sulfamethoxazole/Trimethoprim 800-160 MG Tab PO SCH (17:04)
[2022-12-14] MEDS: Pravastatin 40 MG Tab PO SCH (20:29)
[2022-12-15] MEDS: diphenhydrAMINE 25 MG Cap PO PRN ×3 (00:01→20:43)
[2022-12-15] MEDS: Heparin Sodium 5,000 Units/ML Vial SUBCUT SCH ×2 (00:01→12:11)
[2022-12-15] MEDS: Omeprazole 20 MG Cap.CR PO SCH (06:35)
[2022-12-15] MEDS: oxyCODONE 5 MG Tab PO PRN ×2 (08:07→20:44)
[2022-12-15 08:43] LABS: CARBON DIOXIDE,CO2 20.2 mmol/L (21.0-32.0); POTASSIUM,K 5.3 mmol/L (3.5-5.1)
[2022-12-15] MEDS: Magnesium Oxide 400 MG Tab PO SCH (08:52)
[2022-12-15] MEDS: Tacrolimus 1 MG Cap PO SCH ×2 (08:54→20:43)
[2022-12-15] MEDS: predniSONE 5 MG Tab PO SCH (08:55)
[2022-12-15] MEDS: Losartan 50 MG Tab PO SCH ×2 (08:56→09:07)
[2022-12-15] MEDS: [UNRECOGNIZED DRUG - OTHER] PO SCH ×2 (08:59→20:45)
[2022-12-15] MEDS: VALGANCICLOVIR HCL 450 MG PO SCH (09:00)
[2022-12-15] MEDS: Aspirin 81 MG Tab.Chew PO SCH (09:00)
[2022-12-15] MEDS: Ampicillin 2 GM in Sodium Chloride 0.9% 100 ML IV SCH ×3 (13:38→20:46)
[2022-12-15] MEDS: Levofloxacin/Dextrose 5%-Water 750 MG in Premix Bag 1 BAG IV SCH (16:15)
[2022-12-15] MEDS: Pravastatin 40 MG Tab PO SCH (20:43)
[2022-12-16] MEDS: Ampicillin 2 GM in Sodium Chloride 0.9% 100 ML IV SCH ×6 (01:15→21:59)
[2022-12-16] MEDS: Omeprazole 20 MG Cap.CR PO SCH ×2 (06:15→09:32)
[2022-12-16 07:47] LABS: CARBON DIOXIDE,CO2 20.7 mmol/L (21.0-32.0); POTASSIUM,K 5.2 mmol/L (3.5-5.1)
[2022-12-16] MEDS: Tacrolimus 1 MG Cap PO SCH ×2 (08:57→20:09)
[2022-12-16] MEDS: predniSONE 5 MG Tab PO SCH (08:58)
[2022-12-16] MEDS: Magnesium Oxide 400 MG Tab PO SCH (08:58)
[2022-12-16] MEDS: diphenhydrAMINE 25 MG Cap PO PRN ×2 (08:58→20:11)
[2022-12-16] MEDS: Aspirin 81 MG Tab.Chew PO SCH (08:58)
[2022-12-16] MEDS: oxyCODONE 5 MG Tab PO PRN ×2 (08:59→20:11)
[2022-12-16] MEDS ORDERED: diphenhydrAMINE 25 MG Cap ONE (09:07)
[2022-12-16] MEDS: [UNRECOGNIZED DRUG - OTHER] PO SCH ×2 (09:09→20:12)
[2022-12-16] MEDS: VALGANCICLOVIR HCL 450 MG PO SCH ×2 (09:09→12:30)
[2022-12-16] MEDS: Heparin Sodium 5,000 Units/ML Vial SUBCUT SCH (11:43)
[2022-12-16] MEDS: DAPTOMYCIN IVPUSH SCH (11:47)
[2022-12-16] MEDS: SODIUM CHLORIDE 0.9% IVPUSH SCH (11:47)
[2022-12-16] MEDS: Sulfamethoxazole/Trimethoprim 800-160 MG Tab PO SCH (17:45)
[2022-12-16] MEDS: Pravastatin 40 MG Tab PO SCH (20:09)
[2022-12-17] MEDS: Heparin Sodium 5,000 Units/ML Vial SUBCUT SCH ×2 (00:15→12:23)
[2022-12-17] MEDS: Ampicillin 2 GM in Sodium Chloride 0.9% 100 ML IV SCH ×6 (01:32→21:03)
[2022-12-17] MEDS: Omeprazole 20 MG Cap.CR PO SCH ×2 (06:06→07:39)
[2022-12-17 06:28] LABS: CARBON DIOXIDE,CO2 22.1 mmol/L (21.0-32.0); POTASSIUM,K 5.6 mmol/L (3.5-5.1)
[2022-12-17] MEDS: Magnesium Oxide 400 MG Tab PO SCH (08:42)
[2022-12-17] MEDS: Tacrolimus 1 MG Cap PO SCH ×2 (08:42→20:59)
[2022-12-17] MEDS: Aspirin 81 MG Tab.Chew PO SCH (08:42)
[2022-12-17] MEDS: predniSONE 5 MG Tab PO SCH (08:42)
[2022-12-17] MEDS: VALGANCICLOVIR HCL 450 MG PO SCH (08:44)
[2022-12-17] MEDS: [UNRECOGNIZED DRUG - OTHER] PO SCH ×2 (08:44→21:02)
[2022-12-17] MEDS: oxyCODONE 5 MG Tab PO PRN ×2 (08:48→21:00)
[2022-12-17] MEDS: diphenhydrAMINE 25 MG Cap PO PRN ×2 (08:49→21:00)
[2022-12-17] MEDS: SODIUM CHLORIDE 0.9% IVPUSH SCH (10:55)
[2022-12-17] MEDS: DAPTOMYCIN IVPUSH SCH (10:55)
[2022-12-17] MEDS ORDERED: Sodium Bicarbonate 50 MEQ in Dextrose 5%-0.45% NaCl 1,000 ML IV SCH (12:15)
[2022-12-17] MEDS: Torsemide 20 MG Tab PO SCH (13:55)
[2022-12-17] MEDS: Levofloxacin/Dextrose 5%-Water 750 MG in Premix Bag 1 BAG IV SCH (17:38)
[2022-12-17] MEDS: Pravastatin 40 MG Tab PO SCH (21:00)
[2022-12-18] MEDS: Heparin Sodium 5,000 Units/ML Vial SUBCUT SCH ×2 (00:33→13:17)
[2022-12-18] MEDS: Ampicillin 2 GM in Sodium Chloride 0.9% 100 ML IV SCH ×6 (00:33→20:32)
[2022-12-18] MEDS: Omeprazole 20 MG Cap.CR PO SCH ×2 (06:00→06:39)
[2022-12-18 06:54] LABS: POTASSIUM,K 4.9 mmol/L (3.5-5.1)
[2022-12-18] MEDS: Tacrolimus 1 MG Cap PO SCH ×2 (08:09→20:30)
[2022-12-18] MEDS: Torsemide 20 MG Tab PO SCH (08:09)
[2022-12-18] MEDS: diphenhydrAMINE 25 MG Cap PO PRN ×2 (08:09→20:31)
[2022-12-18] MEDS: predniSONE 5 MG Tab PO SCH (08:10)
[2022-12-18] MEDS: [UNRECOGNIZED DRUG - OTHER] PO SCH ×2 (08:10→20:31)
[2022-12-18] MEDS: Magnesium Oxide 400 MG Tab PO SCH (08:10)
[2022-12-18] MEDS: VALGANCICLOVIR HCL 450 MG PO SCH (08:10)
[2022-12-18] MEDS: Aspirin 81 MG Tab.Chew PO SCH (08:10)
[2022-12-18] MEDS: SODIUM CHLORIDE 0.9% IVPUSH SCH (11:02)
[2022-12-18] MEDS: DAPTOMYCIN IVPUSH SCH (11:02)
[2022-12-18] MEDS: oxyCODONE 5 MG Tab PO PRN (17:16)
[2022-12-18] MEDS: Pravastatin 40 MG Tab PO SCH (20:30)
[2022-12-19] MEDS: Heparin Sodium 5,000 Units/ML Vial SUBCUT SCH ×3 (00:22→23:56)
[2022-12-19] MEDS: Ampicillin 2 GM in Sodium Chloride 0.9% 100 ML IV SCH ×3 (00:30→09:20)
[2022-12-19] MEDS: Omeprazole 20 MG Cap.CR PO SCH ×2 (06:00→06:40)
[2022-12-19 07:12] LABS: CARBON DIOXIDE,CO2 24.7 mmol/L (21.0-32.0)
[2022-12-19] MEDS: Tacrolimus 1 MG Cap PO SCH ×2 (08:06→21:05)
[2022-12-19] MEDS: predniSONE 5 MG Tab PO SCH (08:06)
[2022-12-19] MEDS: VALGANCICLOVIR HCL 450 MG PO SCH (08:07)
[2022-12-19] MEDS: [UNRECOGNIZED DRUG - OTHER] PO SCH ×2 (08:10→21:05)
[2022-12-19] MEDS: Magnesium Oxide 400 MG Tab PO SCH (09:19)
[2022-12-19] MEDS: Aspirin 81 MG Tab.Chew PO SCH (09:19)
[2022-12-19] MEDS: oxyCODONE 5 MG Tab PO PRN ×2 (09:19→21:05)
[2022-12-19] MEDS: Torsemide 20 MG Tab PO SCH (09:20)
[2022-12-19] MEDS: diphenhydrAMINE 25 MG Cap PO PRN ×2 (09:20→21:05)
[2022-12-19] MEDS: DAPTOMYCIN IVPUSH SCH (11:22)
[2022-12-19] MEDS: SODIUM CHLORIDE 0.9% IVPUSH SCH (11:22)
[2022-12-19] MEDS: Sulfamethoxazole/Trimethoprim 800-160 MG Tab PO SCH (18:03)
[2022-12-19] MEDS: Pravastatin 40 MG Tab PO SCH (21:54)
[2022-12-20] MEDS: Omeprazole 20 MG Cap.CR PO SCH ×2 (06:09→06:57)
[2022-12-20] MEDS: Tacrolimus 1 MG Cap PO SCH ×2 (08:32→20:38)
[2022-12-20] MEDS: predniSONE 5 MG Tab PO SCH (08:33)
[2022-12-20] MEDS: Torsemide 20 MG Tab PO SCH (08:33)
[2022-12-20] MEDS: Aspirin 81 MG Tab.Chew PO SCH (08:33)
[2022-12-20] MEDS: VALGANCICLOVIR HCL 450 MG PO SCH (08:33)
[2022-12-20] MEDS: Magnesium Oxide 400 MG Tab PO SCH (08:33)
[2022-12-20] MEDS: [UNRECOGNIZED DRUG - OTHER] PO SCH ×2 (08:34→20:39)
[2022-12-20 08:57] LABS: CARBON DIOXIDE,CO2 24.1 mmol/L (21.0-32.0)
[2022-12-20] MEDS: DAPTOMYCIN IVPUSH SCH (10:56)
[2022-12-20] MEDS: SODIUM CHLORIDE 0.9% IVPUSH SCH (10:56)
[2022-12-20] MEDS: Heparin Sodium 5,000 Units/ML Vial SUBCUT SCH ×2 (12:54→23:42)
[2022-12-20] MEDS: diphenhydrAMINE 25 MG Cap PO PRN ×2 (15:28→21:35)
[2022-12-20] MEDS: oxyCODONE 5 MG Tab PO PRN (15:28)
[2022-12-21] MEDS ORDERED: SODIUM CHLORIDE 0.9% IVPUSH SCH (04:30)
[2022-12-21] MEDS ORDERED: DAPTOMYCIN IVPUSH SCH (04:30)
[2022-12-21 04:41] VITALS: BP 149/104; PULSE 90
== END 2022-12-21 04:35 | disposition home or self-care (01) | DRG 808 ==
LOC: MW.ED 08:00 → MW.MS 11:50
PROVIDERS: ADMIT Internal Medicine; ATTEND Internal Medicine
DX: D70.3 Neutropenia due to infection (principal); D70.9 Neutropenia, unspecified; E86.0 Dehydration; J18.9 Pneumonia, unspecified organism; D84.9 Immunodeficiency, unspecified; Z94.0 Kidney transplant status; Z94.1 Heart transplant status; Z16.11 Resistance to penicillins; N18.4 Chronic kidney disease, stage 4 (severe); E78.00 Pure hypercholesterolemia, unspecified; Z79.52 Long term (current) use of systemic steroids; E66.9 Obesity, unspecified; Z20.822 Contact with and (suspected) exposure to COVID-19; R50.81 Fever presenting with conditions classified elsewhere; J01.90 Acute sinusitis, unspecified; B95.2 Enterococcus as the cause of diseases classified elsewhere; E87.5 Hyperkalemia; I12.9 Hypertensive chronic kidney disease with stage 1 through stage 4 chronic kidney disease, or unspecified chronic kidney disease; Z79.82 Long term (current) use of aspirin; Z79.899 Other long term (current) drug therapy; Z98.890 Other specified postprocedural states; Z89.029 Acquired absence of unspecified finger(s); Z91.041 Radiographic dye allergy status; Z68.32 Body mass index [BMI] 32.0-32.9, adult
CPT/HCPCS: 0241U; 36415; 70490; 70490-26; 71046; 71046-26; 71250; 71250-26; 74176; 74176-26; 80048; 80053; 80202; 81001; 82947; 83605; 83735; 85025; 87040; 87077; 87154; 87186; 87486; 87497; 87581; 87633; 87651-QW; 87798; 87799; 93005; 93306; 96361; 96365; 99222; 99231; 99232; 99239; 99285-25; 99291; A9270-GY; J0290; J0456; J0692; J0878; J1644; J1956; J3370; J3490; J7030; J7042; J7050; J7507; J7512

== ENCOUNTER 2023-09-14 09:59 | Emergency (ER) | payer MEDICARE, BC ==
[2023-09-14] MEDS ORDERED: Sodium Chloride 0.9% 2.5 ML Syringe FLUSH PRN (10:32)
[2023-09-14] MEDS ORDERED: Sodium Chloride 0.9% 10 ML Syringe FLUSH PRN (10:32)
[2023-09-14 11:00] LABS: BASOPHILS ABSOLUTE AUTO 0.02 K/uL (0.00-0.20); BASOPHILS PERCENT AUTO 0.3 % (0.0-1.0); EOSINOPHILS PERCENT AUTO 1.4 % (0.0-6.0); HEMATOCRIT 31.5 % (42.0-52.0); HEMOGLOBIN 9.9 g/dL (14.0-18.0); IMMATURE GRAN ABSOLUTE AUTO 0.04 K/uL (0.00-0.05); IMMATURE GRAN PERCENT AUTO 0.5 % (0.0-0.4); LYMPHOCYTES ABSOLUTE AUTO 1.07 K/uL (1.00-4.80); LYMPHOCYTES PERCENT AUTO 14.5 % (24.0-44.0); MEAN CORPUSCULAR HEMOGLOBIN 26.8 pg (28.0-32.0); MEAN CORPUSCULAR HGB CONC 31.4 g/dL (32.0-36.0); MEAN CORPUSCULAR VOLUME 85.4 fL (83.0-99.0); MEAN PLATELET VOLUME 10.4 fL (9.4-12.4); MONOCYTES ABSOLUTE AUTO 0.56 K/uL (0.00-0.80); MONOCYTES PERCENT AUTO 7.6 % (0.0-8.0); NEUTROPHILS ABSOLUTE AUTO 5.61 K/uL (1.80-7.70); NEUTROPHILS PERCENT AUTO 75.7 % (41.0-71.0); PLATELET COUNT,PLT 117 K/uL (150-400); RED BLOOD CELL COUNT 3.69 M/uL (4.52-5.90)
[2023-09-14 11:11] LABS: PTT,PARTIAL THROMBOPLSTIN TIME 53.5 SEC (23.9-30.7)
[2023-09-14 11:15] LABS: INR 5.88 (0.86-1.11)
[2023-09-14 11:33] LABS: CORONAVIRUS COVID-19 NAA NEGATIVE (NEGATIVE); INFLUENZA A NAA NEGATIVE (NEGATIVE); INFLUENZA B NAA NEGATIVE (NEGATIVE); RESPIRATORY SYNCYTIAL VIR NAA NEGATIVE (NEGATIVE)
[2023-09-14 11:35] LABS: MAGNESIUM 1.9 mg/dL (1.8-2.4)
[2023-09-14 11:44] LABS: A/G RATIO 0.9 (0.9-1.6); ALBUMIN 2.7 g/dL (3.4-5.0); BILIRUBIN TOTAL 0.5 mg/dL (0.2-1.0); CALCIUM 7.8 mg/dL (8.5-10.1); CARBON DIOXIDE,CO2 25.3 mmol/L (21.0-32.0); CREATININE 3.8 mg/dL (0.8-1.3); EST CRCL DRUG DOSING (CG) 23.26 mL/min; POTASSIUM,K 4.5 mmol/L (3.5-5.1); PROTEIN TOTAL,TP 5.8 g/dL (6.4-8.2)
[2023-09-14] MEDS ORDERED: Levofloxacin/Dextrose 5%-Water 750 MG in Premix Bag 1 BAG IV STA (13:16)
[2023-09-14 15:36] VITALS: BP 149/109; PULSE 92
== END 2023-09-14 15:36 | disposition home or self-care (01) ==
LOC: MW.ED 09:59
DX: I97.638 Postprocedural hematoma of a circulatory system organ or structure following other circulatory system procedure (principal); J18.9 Pneumonia, unspecified organism; R79.1 Abnormal coagulation profile; I10 Essential (primary) hypertension; E78.00 Pure hypercholesterolemia, unspecified; E66.9 Obesity, unspecified; Z86.16 Personal history of COVID-19; Z79.82 Long term (current) use of aspirin; Z79.899 Other long term (current) drug therapy; Z91.041 Radiographic dye allergy status
CPT/HCPCS: 0241U; 36415; 71250; 74176; 80053; 83605; 83690; 83735; 83880; 84484; 85025; 85610; 85730; 87040; 93005; 93970; 96365; 99284; J1956; J3490; 93010; 99283

== ENCOUNTER 2023-10-21 14:47 | Emergency (ER) | payer MEDICARE, BC ==
[2023-10-21 16:00] LABS: BASOPHILS ABSOLUTE AUTO 0.01 K/uL (0.00-0.20); BASOPHILS PERCENT AUTO 0.1 % (0.0-1.0); EOSINOPHILS ABSOLUTE AUTO 0.01 K/uL (0.00-0.45); EOSINOPHILS PERCENT AUTO 0.1 % (0.0-6.0); HEMATOCRIT 28.7 % (42.0-52.0); HEMOGLOBIN 9.5 g/dL (14.0-18.0); IMMATURE GRAN ABSOLUTE AUTO 0.12 K/uL (0.00-0.05); IMMATURE GRAN PERCENT AUTO 1.2 % (0.0-0.4); LYMPHOCYTES ABSOLUTE AUTO 1.52 K/uL (1.00-4.80); LYMPHOCYTES PERCENT AUTO 15.8 % (24.0-44.0); MEAN CORPUSCULAR HEMOGLOBIN 27.5 pg (28.0-32.0); MEAN CORPUSCULAR HGB CONC 33.1 g/dL (32.0-36.0); MEAN CORPUSCULAR VOLUME 82.9 fL (83.0-99.0); MEAN PLATELET VOLUME 12.7 fL (9.4-12.4); MONOCYTES ABSOLUTE AUTO 0.32 K/uL (0.00-0.80); MONOCYTES PERCENT AUTO 3.3 % (0.0-8.0); NEUTROPHILS ABSOLUTE AUTO 7.67 K/uL (1.80-7.70); NEUTROPHILS PERCENT AUTO 79.5 % (41.0-71.0); PLATELET COUNT,PLT 101 K/uL (150-400); RED BLOOD CELL COUNT 3.46 M/uL (4.52-5.90); WHITE BLOOD CELL COUNT,WBC 9.65 K/uL (3.9-11.3)
[2023-10-21 16:14] LABS: INR 2.76 (0.86-1.11); PTT,PARTIAL THROMBOPLSTIN TIME 42.6 SEC (23.9-30.7)
[2023-10-21 16:27] LABS: ALBUMIN 3.1 g/dL (3.4-5.0); BILIRUBIN TOTAL 0.4 mg/dL (0.2-1.0); CALCIUM 7.7 mg/dL (8.5-10.1); CARBON DIOXIDE,CO2 18.5 mmol/L (21.0-32.0); CREATININE 4.5 mg/dL (0.8-1.3); EST CRCL DRUG DOSING (CG) 20.28 mL/min; MAGNESIUM 2.9 mg/dL (1.8-2.4); POTASSIUM,K 4.2 mmol/L (3.5-5.1); PROTEIN TOTAL,TP 5.4 g/dL (6.4-8.2)
[2023-10-21 16:31] LABS: A/G RATIO 1.4 (0.9-1.6)
[2023-10-21 17:27] LABS: CORONAVIRUS COVID-19 NAA NEGATIVE (NEGATIVE); INFLUENZA A NAA NEGATIVE (NEGATIVE); INFLUENZA B NAA NEGATIVE (NEGATIVE); RESPIRATORY SYNCYTIAL VIR NAA NEGATIVE (NEGATIVE)
[2023-10-21 19:14] VITALS: PULSE 80
[2023-10-21 20:33] VITALS: BP 130/83
== END 2023-10-21 19:46 ==
LOC: MW.ED 14:47
DX: K92.2 Gastrointestinal hemorrhage, unspecified (principal); E66.9 Obesity, unspecified; Z86.16 Personal history of COVID-19; Z91.041 Radiographic dye allergy status; Z79.4 Long term (current) use of insulin; Z79.82 Long term (current) use of aspirin; Z79.01 Long term (current) use of anticoagulants; Z79.899 Other long term (current) drug therapy; Z68.32 Body mass index [BMI] 32.0-32.9, adult
CPT/HCPCS: 0241U; 36415; 74176; 80053; 83605; 83690; 83735; 84484; 85025; 85610; 85730; 99285; 93010

== ENCOUNTER 2023-11-07 23:19 | Emergency (ER) | payer MEDICARE, BC ==
[2023-11-07] MEDS ORDERED: Naloxone 0.4 MG/ML SDV IVPUSH PRN (23:28)
[2023-11-07] MEDS: Sodium Chloride 0.9% 2.5 ML Syringe FLUSH PRN (23:37)
[2023-11-07] MEDS: Sodium Chloride 0.9% 10 ML Syringe FLUSH PRN (23:37)
[2023-11-07] MEDS: Ondansetron 4 MG/2 ML SDV IVPUSH ONE (23:37)
[2023-11-07] MEDS: Morphine 4 MG/ML Syringe IVPUSH ONE (23:38)
[2023-11-07 23:40] LABS: BASOPHILS ABSOLUTE AUTO 0.01 K/uL (0.00-0.20); BASOPHILS PERCENT AUTO 0.3 % (0.0-1.0); EOSINOPHILS PERCENT AUTO 2.7 % (0.0-6.0); HEMATOCRIT 28.9 % (42.0-52.0); HEMOGLOBIN 9.3 g/dL (14.0-18.0); IMMATURE GRAN ABSOLUTE AUTO 0.02 K/uL (0.00-0.05); IMMATURE GRAN PERCENT AUTO 0.5 % (0.0-0.4); LYMPHOCYTES PERCENT AUTO 65.8 % (24.0-44.0); MEAN CORPUSCULAR HGB CONC 32.2 g/dL (32.0-36.0); MEAN PLATELET VOLUME 11.1 fL (9.4-12.4); MONOCYTES ABSOLUTE AUTO 0.37 K/uL (0.00-0.80); MONOCYTES PERCENT AUTO 10.1 % (0.0-8.0); NEUTROPHILS ABSOLUTE AUTO 0.75 K/uL (1.80-7.70); NEUTROPHILS PERCENT AUTO 20.6 % (41.0-71.0); PLATELET COUNT,PLT 104 K/uL (150-400); RED BLOOD CELL COUNT 3.32 M/uL (4.52-5.90); WHITE BLOOD CELL COUNT,WBC 3.65 K/uL (3.9-11.3)
[2023-11-07 23:53] LABS: INR 1.07 (0.86-1.11)
[2023-11-08] MEDS: Morphine 4 MG/ML Syringe IVPUSH ONE ×2 (00:01→00:42)
[2023-11-08 00:14] LABS: BASE EXCESS VENOUS -3.2 (-2.0-3.0); PH,VENOUS 7.4 (7.31-7.41)
[2023-11-08 00:18] LABS: A/G RATIO 1.1 (0.9-1.6); ALBUMIN 3.2 g/dL (3.4-5.0); BILIRUBIN TOTAL 0.3 mg/dL (0.2-1.0); CALCIUM 8.3 mg/dL (8.5-10.1); CARBON DIOXIDE,CO2 22.3 mmol/L (21.0-32.0); CREATININE 4.6 mg/dL (0.8-1.3); MAGNESIUM 1.9 mg/dL (1.8-2.4)
[2023-11-08] MEDS: HYDROmorphone 1 MG/ML Syringe IVPUSH ONE (02:02)
[2023-11-08] MEDS ORDERED: Heparin Sodium/0.45% NaCl 500 ML IV SCH ×2 (02:30→10:15)
[2023-11-08] MEDS: Furosemide 100 MG in Sodium Chloride 0.9% 90 ML IV STA (03:20)
[2023-11-08] MEDS: Heparin Sodium/0.45% NaCl 500 ML IV SCH ×2 (03:39→10:30)
[2023-11-08] MEDS: Nitroglycerin 2% Oint 1 GM UD Packet TOP ONE (03:48)
[2023-11-08] MEDS: cloNIDine 0.1 MG Tab PO ONE (05:06)
[2023-11-08] MEDS: Carvedilol 25 MG Tab PO ONE (05:07)
[2023-11-08 07:47] LABS: CALCIUM 8.1 mg/dL (8.5-10.1); CREATININE 4.4 mg/dL (0.8-1.3); EST CRCL DRUG DOSING (CG) 19.86 mL/min; POTASSIUM,K 5.5 mmol/L (3.5-5.1)
[2023-11-08] MEDS ORDERED: Furosemide 100 MG in Sodium Chloride 0.9% 90 ML IV SCH (08:00)
[2023-11-08] MEDS: Furosemide 100 MG in Sodium Chloride 0.9% 90 ML IV SCH (08:18)
[2023-11-08] MEDS: Metolazone 5 MG Tab PO ONE (08:20)
[2023-11-08] MEDS: Heparin Sodium 5,000 Units/ML Vial IVPUSH ONE (10:15)
[2023-11-08 14:17] VITALS: BP 125/89; PULSE 76
[2023-11-08 15:25] LABS: CALCIUM 8.5 mg/dL (8.5-10.1); CARBON DIOXIDE,CO2 19.5 mmol/L (21.0-32.0); CREATININE 4.5 mg/dL (0.8-1.3); EST CRCL DRUG DOSING (CG) 19.42 mL/min; POTASSIUM,K 5.7 mmol/L (3.5-5.1)
[2023-11-11 17:03] LABS: TACROLIMUS (FK506) 13.1 ng/mL
== END 2023-11-08 16:00 ==
LOC: MW.ED 23:19
DX: I77.1 Stricture of artery (principal); I50.9 Heart failure, unspecified; N18.9 Chronic kidney disease, unspecified; R79.1 Abnormal coagulation profile; Z94.0 Kidney transplant status; Z94.1 Heart transplant status; E66.9 Obesity, unspecified; Z91.041 Radiographic dye allergy status; Z79.82 Long term (current) use of aspirin; Z79.899 Other long term (current) drug therapy; Z86.16 Personal history of COVID-19; Z68.32 Body mass index [BMI] 32.0-32.9, adult
CPT/HCPCS: 36415; 71045; 80048; 80053; 80197; 82550; 82803; 83690; 83735; 83880; 84484; 85025; 85610; 85730; 93005; 93306; 93926; 93970; 96365; 96366; 96368; 96375; 96376; 99291; A9270; J1170; J1644; J1940; J2270; J2405; J3490; 93010; 99292

== ENCOUNTER 2024-06-26 14:12 | Emergency (ER) | payer MEDICARE, BC ==
[2024-06-26] MEDS: oxyCODONE 5 MG Tab PO STA (14:48)
[2024-06-26] MEDS: Acetaminophen 500 MG Tab PO STA (14:48)
[2024-06-26 15:58] VITALS: BP 105/73; PULSE 88
== END 2024-06-26 16:53 | disposition home or self-care (01) ==
LOC: MW.ED 14:12
DX: S92.345A Nondisplaced fracture of fourth metatarsal bone, left foot, initial encounter for closed fracture (principal); E66.9 Obesity, unspecified; Z86.16 Personal history of COVID-19; Z79.899 Other long term (current) drug therapy; Z79.01 Long term (current) use of anticoagulants; Z88.2 Allergy status to sulfonamides; Z91.041 Radiographic dye allergy status; Z91.048 Other nonmedicinal substance allergy status; Z75.8 Other problems related to medical facilities and other health care; Z68.33 Body mass index [BMI] 33.0-33.9, adult; W01.0XXA Fall on same level from slipping, tripping and stumbling without subsequent striking against object, initial encounter; Y99.0 Civilian activity done for income or pay
CPT/HCPCS: 73552; 73560; 73610; 73630; 99283; A9270

== ENCOUNTER 2024-07-14 21:48 | Emergency (ER) | payer MEDICARE, BC ==
[2024-07-14] MEDS ORDERED: Sodium Chloride 0.9% 10 ML Syringe FLUSH PRN (22:13)
[2024-07-14] MEDS: Oxymetazoline 0.05% Nasal Spray 30 ML Bottle NAS ONE (22:30)
[2024-07-14] MEDS: Ondansetron 4 MG/2 ML SDV IVPUSH ONE (22:30)
[2024-07-14] MEDS: Tranexamic Acid 1,000 MG/10 ML Vial ONE (22:46)
[2024-07-14 23:56] LABS: BASOPHILS ABSOLUTE AUTO 0.02 K/uL (0.00-0.20); BASOPHILS PERCENT AUTO 0.2 % (0.0-1.0); EOSINOPHILS ABSOLUTE AUTO 0.11 K/uL (0.00-0.45); HEMATOCRIT 27.2 % (42.0-52.0); HEMOGLOBIN 8.5 g/dL (14.0-18.0); IMMATURE GRAN ABSOLUTE AUTO 0.15 K/uL (0.00-0.05); IMMATURE GRAN PERCENT AUTO 1.4 % (0.0-0.4); LYMPHOCYTES ABSOLUTE AUTO 2.89 K/uL (1.00-4.80); LYMPHOCYTES PERCENT AUTO 26.5 % (24.0-44.0); MEAN CORPUSCULAR HEMOGLOBIN 29.9 pg (28.0-32.0); MEAN CORPUSCULAR HGB CONC 31.3 g/dL (32.0-36.0); MEAN CORPUSCULAR VOLUME 95.8 fL (83.0-99.0); MEAN PLATELET VOLUME 10.2 fL (9.4-12.4); MONOCYTES ABSOLUTE AUTO 1.34 K/uL (0.00-0.80); MONOCYTES PERCENT AUTO 12.3 % (0.0-8.0); NEUTROPHILS ABSOLUTE AUTO 6.41 K/uL (1.80-7.70); NEUTROPHILS PERCENT AUTO 58.6 % (41.0-71.0); PLATELET COUNT,PLT 96 K/uL (150-400); RED BLOOD CELL COUNT 2.84 M/uL (4.52-5.90); WHITE BLOOD CELL COUNT,WBC 10.92 K/uL (3.9-11.3)
[2024-07-15 00:16] LABS: INR 2.56 (0.86-1.11)
[2024-07-15 00:24] LABS: A/G RATIO 0.7 (0.9-1.6); ALANINE AMINOTRANSFERASE,ALT 21 IU/L (14-63); ALBUMIN 2.4 g/dL (3.4-5.0); ALKALINE PHOSPHATASE 57 U/L (46-116); ASPARTATE AMNIOTRANSFERASE,AST 15 IU/L (15-37); BILIRUBIN TOTAL 0.4 mg/dL (0.2-1.0); BLOOD UREA NITROGEN,BUN 101 mg/dL (7.0-18.0); CALCIUM 8.6 mg/dL (8.5-10.1); CARBON DIOXIDE,CO2 27.3 mmol/L (21.0-32.0); CHLORIDE,CL 98 mmol/L (98-107); CREATININE 7.9 mg/dL (0.8-1.3); ESTIMATED GFR 8 mL/min (>60); GLUCOSE RANDOM 114 mg/dL (74-106); LIPASE 43 U/L (16-77); PROTEIN TOTAL,TP 5.7 g/dL (6.4-8.2); SODIUM,NA 136 mmol/L (136-148)
[2024-07-15 01:25] VITALS: BP 106/82; PULSE 82
== END 2024-07-15 01:04 | disposition home or self-care (01) ==
LOC: MW.ED 21:48
DX: N18.6 End stage renal disease (principal); D64.9 Anemia, unspecified; D69.6 Thrombocytopenia, unspecified; R09.89 Other specified symptoms and signs involving the circulatory and respiratory systems; Z99.2 Dependence on renal dialysis; E66.9 Obesity, unspecified; Z86.16 Personal history of COVID-19; Z79.899 Other long term (current) drug therapy; Z88.8 Allergy status to other drugs, medicaments and biological substances; Z88.2 Allergy status to sulfonamides; Z91.048 Other nonmedicinal substance allergy status
CPT/HCPCS: 36415; 80053; 83605; 83690; 85025; 85610; 99285; A9270; J2405; J3490

== ENCOUNTER 2024-09-25 13:45 | Emergency (ER) | payer MEDICARE, BC ==
[2024-09-25 17:58] LABS: BASOPHILS ABSOLUTE AUTO 0.01 K/uL (0.00-0.20); BASOPHILS PERCENT AUTO 0.1 % (0.0-1.0); EOSINOPHILS ABSOLUTE AUTO 0.03 K/uL (0.00-0.45); EOSINOPHILS PERCENT AUTO 0.4 % (0.0-6.0); HEMATOCRIT 30.3 % (42.0-52.0); HEMOGLOBIN 9.5 g/dL (14.0-18.0); IMMATURE GRAN ABSOLUTE AUTO 0.13 K/uL (0.00-0.05); IMMATURE GRAN PERCENT AUTO 1.7 % (0.0-0.4); LYMPHOCYTES ABSOLUTE AUTO 1.85 K/uL (1.00-4.80); LYMPHOCYTES PERCENT AUTO 24.2 % (24.0-44.0); MEAN CORPUSCULAR HEMOGLOBIN 29.1 pg (28.0-32.0); MEAN CORPUSCULAR HGB CONC 31.4 g/dL (32.0-36.0); MEAN CORPUSCULAR VOLUME 92.9 fL (83.0-99.0); MEAN PLATELET VOLUME 10.2 fL (9.4-12.4); MONOCYTES ABSOLUTE AUTO 0.49 K/uL (0.00-0.80); MONOCYTES PERCENT AUTO 6.4 % (0.0-8.0); NEUTROPHILS ABSOLUTE AUTO 5.13 K/uL (1.80-7.70); NEUTROPHILS PERCENT AUTO 67.2 % (41.0-71.0); PLATELET COUNT,PLT 81 K/uL (150-400); RED BLOOD CELL COUNT 3.26 M/uL (4.52-5.90); WHITE BLOOD CELL COUNT,WBC 7.64 K/uL (3.9-11.3)
[2024-09-25 18:07] LABS: INR 1.93 (0.86-1.11)
[2024-09-25 18:45] LABS: A/G RATIO 0.8 (0.9-1.6); ALBUMIN 3.1 g/dL (3.4-5.0); BILIRUBIN TOTAL 0.4 mg/dL (0.2-1.0); CALCIUM 8.4 mg/dL (8.5-10.1); CARBON DIOXIDE,CO2 26.2 mmol/L (21.0-32.0); CREATININE 6.7 mg/dL (0.8-1.3); EST CRCL DRUG DOSING (CG) 13.47 mL/min; MAGNESIUM 2.9 mg/dL (1.8-2.4); PHOSPHORUS 5.1 mg/dL (2.6-4.7); POTASSIUM,K 4.8 mmol/L (3.5-5.1); PROTEIN TOTAL,TP 6.8 g/dL (6.4-8.2)
[2024-09-25 19:18] VITALS: BP 148/89; PULSE 81
== END 2024-09-25 19:17 | disposition home or self-care (01) ==
LOC: MW.ED 13:45
DX: J18.9 Pneumonia, unspecified organism (principal); R79.89 Other specified abnormal findings of blood chemistry; R53.1 Weakness; N18.6 End stage renal disease; E66.9 Obesity, unspecified; Z94.1 Heart transplant status; Z88.2 Allergy status to sulfonamides; Z91.041 Radiographic dye allergy status; Z91.048 Other nonmedicinal substance allergy status; Z79.01 Long term (current) use of anticoagulants; Z79.52 Long term (current) use of systemic steroids; Z79.899 Other long term (current) drug therapy
CPT/HCPCS: 36415; 71046; 71046-26; 71250; 71250-26; 74176; 74176-26; 80053; 83605; 83690; 83735; 83880; 84100; 84484; 85025; 85610; 87428-QW; 93005; 93010; 99284; 99285

== ENCOUNTER 2024-11-12 12:17 | Emergency (ER) | payer MEDICARE, BC ==
[2024-11-12] MEDS ORDERED: Cefepime 2 GM in Sodium Chloride 0.9% 50 ML IV ONE (12:24)
[2024-11-12 12:52] LABS: EOSINOPHILS ABSOLUTE AUTO 0.03 K/uL (0.00-0.45); EOSINOPHILS PERCENT AUTO 0.5 % (0.0-6.0); HEMATOCRIT 23.3 % (42.0-52.0); IMMATURE GRAN ABSOLUTE AUTO 0.08 K/uL (0.00-0.05); IMMATURE GRAN PERCENT AUTO 1.3 % (0.0-0.4); LYMPHOCYTES ABSOLUTE AUTO 0.76 K/uL (1.00-4.80); LYMPHOCYTES PERCENT AUTO 12.5 % (24.0-44.0); MEAN CORPUSCULAR HEMOGLOBIN 27.5 pg (28.0-32.0); MEAN CORPUSCULAR VOLUME 91.4 fL (83.0-99.0); MEAN PLATELET VOLUME 12.5 fL (9.4-12.4); MONOCYTES ABSOLUTE AUTO 0.52 K/uL (0.00-0.80); MONOCYTES PERCENT AUTO 8.6 % (0.0-8.0); NEUTROPHILS ABSOLUTE AUTO 4.67 K/uL (1.80-7.70); NEUTROPHILS PERCENT AUTO 77.1 % (41.0-71.0); PLATELET COUNT,PLT 94 K/uL (150-400); RED BLOOD CELL COUNT 2.55 M/uL (4.52-5.90); WHITE BLOOD CELL COUNT,WBC 6.06 K/uL (3.9-11.3)
[2024-11-12 13:00] LABS: PH,VENOUS 7.44 (7.32-7.43)
[2024-11-12 13:01] LABS: BASE EXCESS VENOUS -0.2 (-2.0-3.0)
[2024-11-12 13:03] LABS: INR 3.31 (0.86-1.11)
[2024-11-12 13:08] LABS: CORONAVIRUS COVID-19 NAA NEGATIVE (NEGATIVE); INFLUENZA A NAA NEGATIVE (NEGATIVE); INFLUENZA B NAA NEGATIVE (NEGATIVE); RESPIRATORY SYNCYTIAL VIR NAA NEGATIVE (NEGATIVE)
[2024-11-12 13:29] LABS: ALBUMIN 2.6 g/dL (3.4-5.0); BILIRUBIN TOTAL 0.3 mg/dL (0.2-1.0); CALCIUM 8.5 mg/dL (8.5-10.1); CARBON DIOXIDE,CO2 22.9 mmol/L (21.0-32.0); EST CRCL DRUG DOSING (CG) 9.91 mL/min; MAGNESIUM 1.9 mg/dL (1.8-2.4); POTASSIUM,K 3.6 mmol/L (3.5-5.1); PROTEIN TOTAL,TP 6.6 g/dL (6.4-8.2)
[2024-11-12 13:34] LABS: A/G RATIO 0.7 (0.9-1.6)
[2024-11-12] MEDS: Cefepime 2 GM in Sodium Chloride 0.9% 50 ML IV ONE (14:47)
[2024-11-12] MEDS: Morphine 4 MG/ML Syringe IVPUSH ONE (16:08)
[2024-11-12 16:39] VITALS: BP 123/79; PULSE 84
== END 2024-11-12 17:32 ==
LOC: MW.ED 12:17
DX: J18.9 Pneumonia, unspecified organism (principal); S09.90XA Unspecified injury of head, initial encounter; D64.9 Anemia, unspecified; M25.562 Pain in left knee; R74.02 Elevation of levels of lactic acid dehydrogenase [LDH]; E66.9 Obesity, unspecified; Z68.35 Body mass index [BMI] 35.0-35.9, adult; Z88.2 Allergy status to sulfonamides; Z91.041 Radiographic dye allergy status; Z91.048 Other nonmedicinal substance allergy status; Z79.01 Long term (current) use of anticoagulants; Z79.52 Long term (current) use of systemic steroids; Z79.899 Other long term (current) drug therapy; Z94.1 Heart transplant status; Z94.0 Kidney transplant status
CPT/HCPCS: 0241U; 36415; 70450; 71045; 71250; 73562; 73590; 80053; 82803; 83036; 83605; 83690; 83735; 83880; 84100; 84484; 85025; 85610; 87040; 93005; 96365; 96375; 99285; J0692; J2270; 93010; 99284

== ENCOUNTER 2024-11-19 16:03 | Emergency (ER) | payer MEDICARE, BC ==
[2024-11-19] MEDS ORDERED: Sodium Chloride 0.9% 10 ML Syringe FLUSH PRN (16:22)
[2024-11-19 16:50] LABS: BASOPHILS ABSOLUTE AUTO 0.01 K/uL (0.00-0.20); BASOPHILS PERCENT AUTO 0.1 % (0.0-1.0); EOSINOPHILS ABSOLUTE AUTO 0.03 K/uL (0.00-0.45); EOSINOPHILS PERCENT AUTO 0.3 % (0.0-6.0); HEMOGLOBIN 9.1 g/dL (14.0-18.0); IMMATURE GRAN ABSOLUTE AUTO 0.43 K/uL (0.00-0.05); LYMPHOCYTES ABSOLUTE AUTO 1.98 K/uL (1.00-4.80); LYMPHOCYTES PERCENT AUTO 18.6 % (24.0-44.0); MEAN CORPUSCULAR HEMOGLOBIN 27.7 pg (28.0-32.0); MEAN CORPUSCULAR HGB CONC 31.4 g/dL (32.0-36.0); MEAN CORPUSCULAR VOLUME 88.4 fL (83.0-99.0); MEAN PLATELET VOLUME 12.6 fL (9.4-12.4); MONOCYTES ABSOLUTE AUTO 0.92 K/uL (0.00-0.80); MONOCYTES PERCENT AUTO 8.6 % (0.0-8.0); NEUTROPHILS ABSOLUTE AUTO 7.29 K/uL (1.80-7.70); NEUTROPHILS PERCENT AUTO 68.4 % (41.0-71.0); NRBC ABSOLUTE 0.02 K/uL (0.00-0.02); NRBC PERCENT 0.2 /100WBC (0.0-0.2); PLATELET COUNT,PLT 93 K/uL (150-400); RED BLOOD CELL COUNT 3.28 M/uL (4.52-5.90); WHITE BLOOD CELL COUNT,WBC 10.66 K/uL (3.9-11.3)
[2024-11-19 17:24] LABS: A/G RATIO 0.7 (0.9-1.6); ALBUMIN 2.9 g/dL (3.4-5.0); BILIRUBIN TOTAL 0.5 mg/dL (0.2-1.0); CALCIUM 9.4 mg/dL (8.5-10.1); CARBON DIOXIDE,CO2 25.5 mmol/L (21.0-32.0); CREATININE 11.4 mg/dL (0.8-1.3); EST CRCL DRUG DOSING (CG) 7.83 mL/min; MAGNESIUM 2.4 mg/dL (1.8-2.4); POTASSIUM,K 4.3 mmol/L (3.5-5.1); PROTEIN TOTAL,TP 7.2 g/dL (6.4-8.2)
[2024-11-19 20:34] VITALS: BP 110/81; PULSE 86
== END 2024-11-19 20:34 | disposition home or self-care (01) ==
LOC: MW.ED 16:03
DX: R53.1 Weakness (principal); I11.0 Hypertensive heart disease with heart failure; I50.9 Heart failure, unspecified; E78.00 Pure hypercholesterolemia, unspecified; Z88.2 Allergy status to sulfonamides; Z91.048 Other nonmedicinal substance allergy status; Z91.041 Radiographic dye allergy status; Z79.899 Other long term (current) drug therapy; Z79.01 Long term (current) use of anticoagulants
CPT/HCPCS: 36415; 71045; 71045-26; 80053; 83605; 83735; 83880; 84484; 85025; 87040; 87428-QW; 93005; 99283; 99285

== ENCOUNTER 2025-03-17 00:28 | Emergency (ER) | payer MEDICARE, BC ==
[2025-03-17 00:53] LABS: MEAN PLATELET VOLUME 11.6 fL (9.4-12.4); NRBC ABSOLUTE 0.00 K/uL (0.00-0.02); NRBC PERCENT 0.0 /100WBC (0.0-0.2); PLATELET COUNT,PLT 133 K/uL (150-400); RED BLOOD CELL COUNT 3.63 M/uL (4.52-5.90); WHITE BLOOD CELL COUNT,WBC 12.12 K/uL (3.9-11.3)
[2025-03-17 01:03] VITALS: BP 154/104; PULSE 81
[2025-03-17 01:06] LABS: INR 2.17 (0.86-1.11)
== END 2025-03-17 01:34 | disposition home or self-care (01) ==
LOC: MW.ED 00:28
DX: R04.0 Epistaxis (principal); I11.0 Hypertensive heart disease with heart failure; I50.9 Heart failure, unspecified; Z88.8 Allergy status to other drugs, medicaments and biological substances; Z91.041 Radiographic dye allergy status; Z88.2 Allergy status to sulfonamides; Z79.899 Other long term (current) drug therapy
CPT/HCPCS: 30901; 36415; 85027; 85610; 99283; A9270

== ENCOUNTER 2025-05-03 19:28 | Emergency (ER) | payer MEDICARE, BC ==
[2025-05-03 19:44] VITALS: BP 131/90; PULSE 107
== END 2025-05-03 20:00 | disposition home or self-care (01) ==
LOC: MW.ED 19:28
DX: Z48.01 Encounter for change or removal of surgical wound dressing (principal); I11.0 Hypertensive heart disease with heart failure; I50.9 Heart failure, unspecified; E66.9 Obesity, unspecified; Z91.041 Radiographic dye allergy status; Z88.2 Allergy status to sulfonamides; Z79.899 Other long term (current) drug therapy
CPT/HCPCS: 99282; 99283